=== PATIENT | male | born 1980 | race Caucasian/White ===

== ENCOUNTER 2016-11-24 16:35 | Emergency (ER) | payer MEDICAID ==
[~2016-11-24] VITALS: Ht 177.8 cm; Wt 100.0 kg
[~2016-11-24 16:35] MED LIST: ALPR2TAB3 PO; AMBI5TAB PO; LEVE500 PO; LEVE500T11 PO; NICO4LOZ30 BUCCAL; PERC10TA27 PO
[2016-11-24] MEDS ORDERED: GADODIAMIDE PF 287 MG/ML 20 ML VIAL (for RAD MRI) IVCONTRAST ONE (16:36)
[2016-11-24 16:41] VITALS: BP 131/79; PULSE 74; RESP 16; TEMP 98.8; O2SAT 97
--- NOTE | 2016-11-24 16:46 | PD ---
Physical Exam Time Seen by Provider: 16:45 Narrative 36 y/o male reports that he had a seizure one month ago. he has had a persistent h/a and frequent falls since then. He also reports that he was unable to obtain an outpatient MRI brain which was ordered for today secondary to insurance constraints. Vital signs reviewed. Seen at triage desk. Awaiting bed placement. Data Data Last Documented VS Vital Signs Date Time Temp Pulse Resp B/P (MAP) Pulse Ox O2 Delivery O2 Flow Rate FiO2 11/24/16 16:41 98.8 74 16 131/79 (96) 97 Room Air [facility] Medical Record Reviewed: Yes Supervised Visit with GREGORIO: Oj Claudio Nov 24, 2016 16:46
[2016-11-24] MEDS ORDERED: METOCLOPRAMIDE HCL 10 MG/2 ML VIAL IV PUSH ONE (19:00)
[2016-11-24] MEDS ORDERED: SODIUM CHLORIDE 0.9% FLUSH 10 ML FLUSH IV FLUSH PRN (19:00)
[2016-11-24] MEDS ORDERED: KETOROLAC TROMETHAMINE 30 MG/ML (IVP) VIAL IV PUSH ONE (19:00)
[2016-11-24 19:06] VITALS: O2SAT 98
[2016-11-24 19:59] LABS: AUTOMATED NEUTROPHIL # 5.5 TH/MM3 (1.8-7.7); BASOPHIL % 0.3 % (0.0-2.0); EOSINOPHIL # 0.3 TH/MM3 (0-0.4); EOSINOPHIL % 2.8 % (0.0-4.0); HEMATOCRIT 41.1 % (39.0-51.0); HEMO FLAGS DIFF FINAL; LYMPH % 30.8 % (9.0-44.0); LYMPHOCYTE # 2.8 TH/MM3 (1.0-4.8); MEAN CELL VOLUME 97.7 FL (80.0-100.0); MEAN CORPUSCULAR HEMOGLOBIN 33.4 PG (27.0-34.0); MEAN CORPUSCULAR HGB CONC 34.1 % (32.0-36.0); MONO % 6.3 % (0.0-8.0); NEUT % 59.8 % (16.0-70.0); PLATELET COUNT 285 TH/MM3 (150-450); RED BLOOD COUNT 4.21 MIL/MM3 (4.50-5.90); WHITE BLOOD COUNT 9.2 TH/MM3 (4.0-11.0)
[2016-11-24 20:08] LABS: APTT (PATIENT) 30.8 SEC (24.3-30.1); PROTHROMBIN TIME - PATIENT 11.6 SEC (9.8-11.6)
[2016-11-24 20:21] LABS: ANION GAP 7 MEQ/L (5-15); AST (GOT) 55 U/L (15-37); BICARBONATE 27.6 MEQ/L (21.0-32.0); BLOOD UREA NITROGEN 8 MG/DL (7-18); CHLORIDE 103 MEQ/L (98-107); GLOMERULAR FILTRATION RATE 109 ML/MIN (>89); POTASSIUM 3.8 MEQ/L (3.5-5.1); SODIUM (NA) 138 MEQ/L (136-145)
[2016-11-24 20:22] LABS: ALT (GPT) 41 U/L (12-78)
[2016-11-24 20:24] LABS: ALKALINE PHOSPHATASE 59 U/L (45-117); TOTAL BILIRUBIN ADULT 0.7 MG/DL (0.2-1.0)
--- NOTE | 2016-11-24 20:50 | PD ---
HPI Chief Complaint: Headache Time Seen by Provider: 18:39 Travel History International Travel<30 days: No Contact w/Intl Traveler<30days: No Traveled to known affect area: No History of Present Illness HPI 36-year-old male here for evaluation of headache and intermittent numbness/ weakness in his lower extremities. The patient reports that a month ago he was incarcerated. He has been on alprazolam for 12 years. While in residential they did not give him this medication, and he had a seizure. They started him on Keppra at that time. [facility] from [facility] he went to [facility] and was evaluated there and was referred to a neurologist. A primary care physician ordered an outpatient MRI which was scheduled for today, however because of insurance issues he was unable to obtain this study. He has also been unable to follow-up with a neurologist. He states that for the last month he has been having a severe right-sided headache that has been constant and described as pressure. He also reports intermittently feeling numb in his legs and falling to the ground because of intermittent weakness. No bowel or urinary incontinence or retention. No history of IVDU. PFSH Past Medical History Diminished Hearing: No Medical other: Yes (PE ) Seizures: Yes ?: Not Past Surgical History Tonsillectomy: Yes Social History Alcohol Use: No Tobacco Use: No Substance Use: No Allergies-Medications (Allergen,Severity, Reaction): Coded Allergies: bee venom protein (honey bee) (Verified Allergy, Severe, Shortness of Breath, 11/24/16) Reported Meds & Prescriptions Reported Meds & Active Scripts Active Percocet (Oxycodone-Acetaminophen) 10-325 mg Tab 1 Tab PO Q6H PRN Reported Alprazolam 2 Mg Tab 4 Tab PO DIRECTED Nicotine Davina (Nicotine Polacrilex) 4 Mg Davina 4 Mg BUCCAL DAILY Ambien (Zolpidem Tartrate) 5 Mg Tab 5 Mg PO HS PRN Keppra (Levetiracetam) 500 Mg Tab 500 Mg PO BID Review of Systems Except as stated in HPI: all other systems reviewed are Neg Physical Exam Narrative GENERAL: Well-developed, well-nourished, awake, alert, GCS 15, no apparent distress. SKIN: Focused skin assessment warm/dry. HEAD: Atraumatic. Normocephalic. EYES: Pupils equal, round, 5 mm, reactive to light. No scleral icterus. No injection or drainage. ENT: Mucous membranes pink and moist. NECK: Trachea midline. No JVD. CARDIOVASCULAR: Regular rate and rhythm. RESPIRATORY: No accessory muscle use. Clear to auscultation. Breath sounds equal bilaterally. GASTROINTESTINAL: Abdomen soft, non-tender, nondistended. MUSCULOSKELETAL: No obvious deformities. No clubbing. No cyanosis. No edema. NEUROLOGICAL: Awake and alert. No obvious cranial nerve deficits. Motor grossly within normal limits. Normal speech. No focal deficits. PSYCHIATRIC: Appropriate mood and affect; insight and judgment normal. Data Data Last Documented VS Vital Signs Date Time Temp Pulse Resp B/P (MAP) Pulse Ox O2 Delivery O2 Flow Rate FiO2 11/24/16 20:53 15 11/24/16 19:06 98 Room Air 11/24/16 16:41 98.8 74 Orders Orders Complete Blood Count With Diff (11/24/16 18:48) Comprehensive Metabolic Panel (11/24/16 18:48) Prothrombin Time / Inr (Pt) (11/24/16 18:48) Act Partial Throm Time (Ptt) (11/24/16 18:48) Iv Access Insert/Monitor (11/24/16 18:48) Ecg Monitoring (11/24/16 18:48) Oximetry (11/24/16 18:48) Sodium Chloride 0.9% Flush (Ns Flush) (11/24/16 19:00) Ketorolac Inj (Toradol Inj) (11/24/16 19:00) Metoclopramide Inj (Reglan Inj) (11/24/16 19:00) Mri Brain W&W/O Contrast (11/24/16 ) Gadodiamide Pf Inj (Omniscan Pf Inj) (11/24/16 16:36) Labs Laboratory Tests Test 11/24/16 19:01 White Blood Count 9.2 TH/MM3 Red Blood Count 4.21 MIL/MM3 Hemoglobin 14.0 GM/DL Hematocrit 41.1 % Mean Corpuscular Volume 97.7 FL Mean Corpuscular Hemoglobin 33.4 PG Mean Corpuscular Hemoglobin Concent 34.1 % Red Cell Distribution Width 14.0 % Platelet Count 285 TH/MM3 Mean Platelet Volume 7.7 FL Neutrophils (%) (Auto) 59.8 % Lymphocytes (%) (Auto) 30.8 % Monocytes (%) (Auto) 6.3 % Eosinophils (%) (Auto) 2.8 % Basophils (%) (Auto) 0.3 % Neutrophils # (Auto) 5.5 TH/MM3 Lymphocytes # (Auto) 2.8 TH/MM3 Monocytes # (Auto) 0.6 TH/MM3 Eosinophils # (Auto) 0.3 TH/MM3 Basophils # (Auto) 0.0 TH/MM3 CBC Comment DIFF FINAL Differential Comment Prothrombin Time 11.6 SEC Prothromb Time International Ratio 1.0 RATIO Activated Partial Thromboplast Time 30.8 SEC Blood Urea Nitrogen 8 MG/DL Creatinine 0.81 MG/DL Random Glucose 78 MG/DL Total Protein 8.0 GM/DL Albumin 4.3 GM/DL Calcium Level 9.3 MG/DL Alkaline Phosphatase 59 U/L Aspartate Amino Transf (AST/SGOT) 55 U/L Alanine Aminotransferase (ALT/SGPT) 41 U/L Total Bilirubin 0.7 MG/DL Sodium Level 138 MEQ/L Potassium Level 3.8 MEQ/L Chloride Level 103 MEQ/L Carbon Dioxide Level 27.6 MEQ/L Anion Gap 7 MEQ/L Estimat Glomerular Filtration Rate 109 ML/MIN [facility] Medical Decision Making Medical Screen Exam Complete: Yes Emergency Medical Condition: Yes Medical Record Reviewed: Yes Differential Diagnosis Benzodiazepine withdrawal seizure, intracranial abnormality/mass, metabolic abnormality Narrative Course Vital signs show heart rate 74, blood pressure 131/79, pulse ox 97% on room air , oral temp of 98.8F. CBC is unremarkable. CMP is remarkable for AST 55, ALT 41, otherwise unremarkable. MRI brain: CONCLUSION: Nonspecific early atrophy. No acute intracranial abnormality demonstrated. Patient and the patient's mom were made aware of all findings and the patient was provided a copy of the MRI report. He reports history of heavy alcohol use/ abuse for several years. 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 There are no focal deficits on exam. Patient was given Reglan and Toradol with some improvement in his headache. He was able to sleep in the emergency department. At this point he is stable for discharge home with further workup as an outpatient with a primary care physician/neurologist. I will give him the name of the neurologist non destructive tester with whom to follow-up with this week. He was informed on when to return to the emergency department. He verbalizes understanding and agreement with plan. Diagnosis Primary Impression: Cephalgia Qualified Codes: R51 - Headache Referrals: Lalita Ruiz MD 1 week Neurologist Primary Care Physician 3 days Additional Instructions: Follow-up with a primary care physician this week. Follow-up with neurologist Dr. Ruiz or a neurologist of your choice this week. Return to the emergency department for worsening symptoms or any other concerns. Disposition: 01 DISCHARGE HOME Condition: Stable Delmer Hale MD Nov 24, 2016 20:50
[2016-11-24 20:53] VITALS: RESP 15
--- NOTE | 2016-11-24 21:53 | RADRPT ---
EXAM DATE/TIME: 11/24/2016 21:09 [facility] COMPARISON: No previous studies available for comparison. INDICATIONS : Seizures. CONTRAST: 20 cc Omniscan (gadodiamide) IV MEDICAL HISTORY : Hypertension. SURGICAL HISTORY : Tonsillectomy. Adenoids ENCOUNTER: Initial ACUITY: 1 day PAIN SCORE: 0/10 LOCATION: Right cranial TECHNIQUE: Multiplanar, multisequence MRI of the brain was performed both prior to and following the administrat ion of paramagnetic contrast. FINDINGS: CEREBRUM: The ventricles are normal for age. No evidence of midline shift, mass lesion, hemorrhage or acute in farction. No extraaxial fluid collections are seen. The pituitary gland and suprasellar cistern are normal in configuration. There is diffuse cortical atrophy for a patient this age. WHITE MATTER: No significant signal abnormalities are seen in the white matter. POSTERIOR FOSSA: The cerebellum and brainstem are intact. The 4th ventricle is midline. The cerebellopontine angle is unremarkable. The cerebellar tonsils are normal in position. DIFFUSION IMAGING: No focal areas of restricted diffusion are seen. No evidence of acute infarction. EXTRACRANIAL: The visualized portions of the orbits and paranasal sinuses are unremarkable. POST-CONTRAST: No abnormal areas of parenchymal or dural enhancement. No evidence of blood-brain barrier breakdown. CONCLUSION: Nonspecific early atrophy. No acute intracranial abnormality demonstrated. Chad Ni MD on November 24, 2016 at 21:50 Board Certified Radiologist. This report was verified electronically.
[2016-12-08] MEDS ORDERED: PERC5TAB12 PO (10:22)
== END 2016-11-24 22:36 | disposition home or self-care (01) ==
LOC: NEPD 16:35
DX: R51 Headache (principal); R56.9 Unspecified convulsions
CPT/HCPCS: 70553; 80053; 85025; 85610; 85730; 96374; 96375; 99285; A9579; J1885; J2765

== ENCOUNTER → 2016-12-08 | Day surgery (SDC) | payer MEDICAID ==
[~2016-12-08] VITALS: Ht 175.3 cm; Wt 120.6 kg
[~2016-12-08] MED LIST changes: +CHLORHEXIDINE GLUCONATE 2 % 1 PACK (2 CLOTHS) TOPICAL PRN; +DO NOT ADM ANY ANTICOAGULANT DRUGS PRN; +INSULIN HUMAN REGULAR 1,000 UNITS/10 ML VIAL SQ PRN; +LACTATED RINGER'S 1000 ML IV PRN; -LEVE500T11 PO; +LIDOCAINE HCL 1% PF 5 ML AMPULE OTHER ONE; +METOPROLOL TARTRATE 25 MG TAB PO PRN; +MIDAZOLAM HCL 2 MG/2 ML VIAL IV ONE; +ONDANSETRON HCL 4 MG/2 ML VIAL IV PUSH PRN; +PERC5TAB12 PO; +POVIDONE IODINE 5% (ANTISEPSIS KIT) 4 APPLICATIONS EACH NARE PRN; +PROPOFOL 200 MG/20 ML AMP IV ONE; +SODIUM CHLORID 0.9% 500 ML IV PRN; +oxyCODONE/ACETAMINOPHEN 5 MG/325 MG TAB PO PRN
--- NOTE | 2016-12-08 07:06 | RADRPT ---
EXAM DATE/TIME: 12/08/2016 06:47 [facility] COMPARISON: No previous studies available for comparison. Outside CT and x-ray examination. INDICATIONS : Pre op for lithotripsy. MEDICAL HISTORY : None. SURGICAL HISTORY : None. ENCOUNTER: Initial ACUITY: 1 day PAIN SCORE: 5/10 LOCATION: Left abdomen. FINDINGS: 2 supine frontal views of the abdomen demonstrate no abnormal densities overlying the kidneys. Howeve r, both kidneys are partially obscured by overlying bowel gas and stool. Additionally, no abnormal de nsities are visualized along the expected course of the ureters or within the pelvis. There is a nonobstructive bowel gas pattern. No organomegaly is present. Bones demonstrate no acute f inding. CONCLUSION: No renal stones are visualized. Please note that the kidneys are partially obscured by overlying erica l gas and stool. The renal stone documented on the recent outside CT examination is not appreciated. Chad Armenta MD on December 08, 2016 at 7:00 Board Certified Radiologist. This report was verified electronically.
--- NOTE | 2016-12-08 10:19 | PD.OP ---
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 Operative procedure in detail: Patient was brought to the operating suite and placed supine on the lithotripsy table. He was then placed under general anesthesia. After appropriate timeout was undertaken, I proceeded with localizing the patient's left sided renal calculus with fluoroscopy as well as the ultrasound device. Once localized the patient received extra portal shockwave lithotripsy utilizing the Valles Piezolith 3000 device. The patient received a total of 3000 shocks with a maximum power setting of 20. At the conclusion of the procedure the stone was spread out and area field worker in intensity consistent with at least some degree of fragmentation. The patient tolerated the procedure without complications and was transferred to the PACU in satisfactory condition. Anshul Hassan MD Dec 08, 2016 10:19
[2016-12-08 11:45] VITALS: BP 119/70; PULSE 92; RESP 20; TEMP 97.4; O2SAT 98
== END | disposition home or self-care (01) ==
LOC: HSDC 06:26
PROVIDERS: ATTEND Urology
DX: N20.0 Calculus of kidney (principal); Q63.1 Lobulated, fused and horseshoe kidney; I10 Essential (primary) hypertension; R56.9 Unspecified convulsions; Z86.711 Personal history of pulmonary embolism
CPT/HCPCS: 00872; 50590; 74000; J2250; J3010; J7120